=== PATIENT | male | born 1995 | race Hispanic/Latino ===

== ENCOUNTER 2016-12-25 16:13 | Emergency (ER) | payer OTHER ==
[~2016-12-25] VITALS: Ht 182.9 cm; Wt 70.3 kg
[~2016-12-25 16:13] MED LIST: DOXYCYCLINE100 MG PO; MOTRIN800 MG PO; VYVANSE70 MG PO
--- NOTE | 2016-12-25 16:54 | ED PSYCHIATRIC COMPLAINT ---
See Addendum History of Present Illness General Chief Complaint: ETOH/Drug Related Complaint Stated Complaint: DETOX Source: patient, family Exam Limitations: clinical condition Vital Signs & Intake/Output Vital Signs & Intake/Output Vital Signs Date Time Temp Pulse Resp B/P B/P Pulse O2 O2 Flow FiO2 Mean Ox Delivery Rate 12/25 2021 96.9 60 16 109/59 100 Room Air 12/25 1627 98.1 59 16 111/65 97 Room Air ED Intake and Output 12/26 0000 12/25 1200 Intake Total Output Total Balance Patient 155 lb Weight Weight Reported by Patient Measurement Method Allergies Coded Allergies: MDX - Amoxicillin (AMOXICILLIN) (UNKNOWN 12/29/14) Reconcile Medications Lisdexamfetamine Dimesylate (Vyvanse) 70 MG CAP 1 CAP PO QAM ADHD (Reported) Lisdexamfetamine Dimesylate (Vyvanse) 70 MG CAP 1 CAP PO DAILY ADHD (Reported ) Triage Note: PT STATES HE IS FEELING SUICIDAL STATES HE HAS ALWAYS FELT LIKE THIS BUT IT HAS BEEN BAD THE LAST TWO WEEKS. PT STATES HE SMOKES WEED AND THAT IS IT. PT REPORTS TRYING TO GET INTO A PROGRAM THAT WILL HELP HIM WITH COPING SKILLS. PT REPORTS THAT HE IS HOMELESS AND DEPRESSED. PT DENIES OTHER DRUG USE AND ADMITS TO ETOH BUT STATES THIS IS NOT A PROBLEM FOR HIM Triage Nurses Notes Reviewed? yes Onset: Abrupt Duration: unknown duration Timing: unknown HPI: 12/25/16 5 PM 21-year-old male brought into the hospital by ambulance for suicidal ideation. According to the patient's grandmother he expressed that he was going to kill himself. The patient currently denies depression or suicidal ideation at this time. He does say that he was recently kicked out of his father's house and is homeless. He denies prior psychiatric care. The onset of the symptoms were abrupt, the duration and the symptoms are unknown, the severity is significant as his symptoms required him to come to the emergency department for care. (NOLBERTO BOB DO) Past History Travel History Traveled to [place] past 21 day No Medical History Any Pertinent Medical History? see below for history Neurological: NONE EENT: NONE Cardiovascular: NONE Respiratory: NONE Gastrointestinal: NONE Hepatic: NONE Renal: NONE Musculoskeletal: NONE Psychiatric: ADHD Endocrine: NONE Blood Disorders: NONE Cancer(s): NONE Surgical History Surgical History: non-contributory Psychosocial History What is your primary language Portuguese Tobacco Use: Current Daily Use Daily Tobacco Use Amount/Type: => 5 Cigarettes daily ETOH Use: occasional use Illicit Drug Use: marijuana Family History Hx Contributory? No (NOLBERTO BOB DO) Review of Systems Review of Systems Constitutional: Reports: no symptoms. EENTM: Reports: no symptoms. Respiratory: Reports: no symptoms. Cardiovascular: Reports: no symptoms. GI: Reports: no symptoms. Genitourinary: Reports: no symptoms. Musculoskeletal: Reports: no symptoms. Skin: Reports: no symptoms. Neurological/Psychological: Reports: depressed. Hematologic/Endocrine: Reports: no symptoms. Immunologic/Allergic: Reports: no symptoms. (NOLBERTO BOB DO) Physical Exam Physical Exam General Appearance: well developed/nourished, alert, awake, anxious, mild distress Head: atraumatic, normal appearance Eyes: Bilateral: normal appearance, PERRL, EOMI. Ears, Nose, Throat: normal pharynx, normal ENT inspection Neck: normal inspection, supple Respiratory: normal breath sounds, chest non-tender, no respiratory distress Cardiovascular: regular rate/rhythm Gastrointestinal: soft, non-tender Extremities: normal range of motion Neurological/Psychiatric: no motor/sensory deficits, awake, agitated Appearance/Memory/Insight: appropriate appearance Behavoir/Eye Contact/Speech: uncooperative Thoughts/Hallucinations: no apparent hallucination Skin: intact, normal color, warm/dry SAD PERSONS SAD PERSONS Response Value Male Sex? yes 1 Depression/Hopelessness? yes 2 Single//? yes 1 Social Support? has support 0 Total 4 SAD PERSONS Done? yes (NOLBERTO BOB DO) Progress Differential Diagnosis: DEPRESSION, SI Plan of Care: Orders Procedure Date/time Status Regular Diet 12/26 B Active Continuous Observation Monitor 12/25 1710 Active URINE DRUG SCREEN FOR ER ONLY 12/25 1710 Complete ED CRISIS PSYCH CONSULT 12/25 1710 Active Laboratory Tests 12/25/16 1745: Urine Opiates Screen 268.00, Methadone Screen < 40, Barbiturate Screen < 60, Ur Phencyclidine Scrn < 6.00, Amphetamines Screen < 100, U Benzodiazepines Scrn < 85, Urine Cocaine Screen < 50, Urine Cannabis Screen > 80.00 H The patient was placed in a quiet room. Close observation monitor was ordered. Crisis consultation was requested. (NOLBERTO BOB DO) Initial ED EKG: none (NOLBERTO BOB DO) Departure Departure Disposition: STILL A PATIENT Condition: Stable Clinical Impression Primary Impression: Depression Referrals: DALI BAUTISTA,DELILAH Smiley (PCP/Family) Departure Forms: Customer Survey General Discharge Information Comments 12/26/16 12:25 am The patient is awaiting crisis reevaluation. He was signed out to Dr. Frank at 1 AM (NOLBERTO BOB DO) PA/NETWORK LIAISON Co-Sign Statement Statement: ED Attending supervision documentation- [] I saw and evaluated the patient. I have also reviewed all the pertinent lab results and diagnostic results. I agree with the findings and the plan of care as documented in the PA's/NETWORK LIAISON's documentation. [x]x I have reviewed the ED Record and agree with the PA's/NETWORK LIAISON's documentation. [] Additions or exceptions (if any) to the PAs/NETWORK LIAISON's note and plan are summarized below: [] (INDIGO BAUTISTA,BARRY Cobb)
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
[2016-12-26 06:13] VITALS: BP 118/75
--- NOTE | 2016-12-26 09:00 | ED PSYCH CRISIS CONSULTATION ---
Crisis Consult Basic Assessment Date of Consult: 12/26/16 Responsible Person/Accompanied By: self Insurance Authorization: Insurance #1: Insurance name: SOTERO KIDD Phone number: Policy number: [id number] Group number: [id number] Authorization number: ED Provider: Patient's ED Provider: NOLBERTO BOB DO Primary Care Physician: Patient's PCP: DELILAH MCNALLY MD PCP's Current Psychiatrist: None Chief Complaint: Psychiatric Related Complaint Patient's Quote: "I just said I was suicidal so that I would have a place to sleep." Present Illness: Pt is a 21 yo male who was brought to the ED due to family concerns that pt was suicidal. Acute Coordinator SUHAS Mccrary met with grandparents and Mother last night. Please see collateral note. Upon crisis eval this morning, pt denies any active SI. "This was my Grandma's idea. She coached me on what to says so that I would have a place to sleep." Pt has been having ongoing conflict with family and is not allowed to stay with them. "I was staying on the couch of my Mom's friend, but my Mom did not want me to be a burden on her." Pt is adamant that he is not suicidal and denies ever making any suicide attempts. "I'm not suicidal. I want to get my life together. I have a job fair I'm supposed to go to today." Pt denies any current sx of depression. He admits he smokes marijuana daily since he was 13 and drinks alcohol "once in awhile." Pt denies any hx of any inpt psych tx. Pt was in out pt tx at [facility], but stopped going when he started a new job, but lost the job. Pt expressed his motivation to stop smoking marijuana and attend [facility]. Pt was provided with an intake appointment with [facility] for Wednesday12/28/16 at 9:30am. Pt was also provided with information about [facility] to assist with residential and employment assistance. Case reviewed with Dr. Del Cid of Psychiatry and he approved dispo plan. Upon discharge, pt called his Mother and Grandmother to ask to be picked up. Mom was refusing to pick pt up. Mom and Grandma expressed their concern to this clinician that pt has been making suicidal statements all week such as threatening to take pills and threatening to walk into traffic and sent his Mom a text yesterday that eh wants to . It appears that the statements are made in the context of pt trying to get his family to let him stay with them. Pt continues to deny that he is suicidal and declined any inpt tx. Pt would like to be discharged. This clinician reviewed the case again with Dr. Del Cid, because of Mom and Grandma's expressed concerns. Dr. Del Cid is still in agreement for pt to be discharged as planned and to follow-up in [facility]. This clinician informed Mom that pt is being discharged. Explained to her if that pt may return to the ED if there are safety concerns. At Mom's request Pt was provided with a list of inpt substance abuse tx facilities. Pt informed that his father is able to pick him up. Patient's Address: [address] [place] [address] Other Phone Number: Who Do You Live With? Other (see notes) (homeless) Family/Informants Interviewed: momm and grandparents Allergies - Coded Allergies: MDX - Amoxicillin (AMOXICILLIN) (UNKNOWN 12/29/14) Current Medications - Scheduled Medications Lisdexamfetamine Dimesylate (Vyvanse) 70 MG CAP 1 CAP PO QAM ADHD #30 ( Reported) Entered as Reported by NILAM FLETCHER on 05/16/15 1447 Lisdexamfetamine Dimesylate (Vyvanse) 70 MG CAP 1 CAP PO DAILY ADHD (Reported ) Entered as Reported by EMILY ROMERO on 05/16/15 1620 Laboratory Results: Laboratory Tests 12/25/16 1745: Urine Opiates Screen 268.00, Methadone Screen < 40, Barbiturate Screen < 60, Ur Phencyclidine Scrn < 6.00, Amphetamines Screen < 100, U Benzodiazepines Scrn < 85, Urine Cocaine Screen < 50, Urine Cannabis Screen > 80.00 H Past History Past Medical History Neurological: NONE EENT: NONE Cardiovascular: NONE Respiratory: NONE Gastrointestinal: NONE Hepatic: NONE Renal: NONE Musculoskeletal: NONE Psychiatric: ADHD Endocrine: NONE Blood Disorders: NONE Cancer(s): NONE Past Surgical History Surgical History: non-contributory Psychosocial History Strengths/Capabilities: motivated for treatment and seeking empolyment, future oriented Physical Limitations (Interventions): none reported Psychiatric Treatment History Psych Treatment Psychiatric Treatment Yes Inpatient Treatment No Outpatient Treatment Yes Location of Treatment [facility] Reason for Treatment depression Dates of Treatment 2017 Response to Treatment variable Diagnosis by History: Bipolar, ADHD Substance Use/Abuse History Drug Use/Abuse Substances Used/Abused Yes Substance Used/Abused Other (list in comments) (see present illness) Substance Abuse Treatment Substance Abuse Treatment Past Substance Abuse [place] No Inpatient Treatment No Outpatient Treatment No Current Mental Status Mental Status Orientation: Person, Place, Situation Affect: WNL Speech: WNL Neuro-vegetative: WNL Appearance Appearance- Dress/Hygiene: well groomed, good eye contact Behaviors Thought Process: WNL Thought Content: WNL Memory: WNL Insight: WNL SI/HI Risk Assessment Past Suicidal Ideation/Attempts No Current Suicidal Ideation/Att No Past Homicidal Ideation/Att: No Current Homicidal Ideation/Attempts No Degree of Intent: None Risk Factors: age (under 24/over 65), substance abuse, male, limited support Lethality Ratin (mild) PTSD Checklist PTSD Done? patient declined ED Management Sitter: Yes Restraints: No DSM5/PS Stressors/Medical Prob Diagnosis' (DSM 5, Stressors, Medical): Unspecified Depression F32.9, Cannabis use, f12.20, alcohol use f10.20 Current GAF: 40 Departure Disposition Psych Medical Clearance Date: 12/26/16 Medically Cleared at: 0845 Time Started: 844 Time Ended: 944 Psychiatrist Consulted: Dr. Del Cid Date Disposition Established: 12/26/16 Time Disposition Established: 944 Plan for Disposition - Modality: IOP Facility: [facility] Follow-up Appt Date: 12/28/16 Follow-Up Appt Time: 929 Rationale for Disposition: Pt denies any SI and is motivated to attend IOP Referrals DALI BAUTISTA,DELILAH Smiley (PCP/Family)
--- NOTE | 2016-12-28 10:34 | IOP INCIDENTAL NOTE ---
IOP Incidental Note Details: Patient no call/no show for IOP intake appointment. His phone number of record is out of service.
== END 2016-12-26 10:04 ==
LOC: ERH 16:13
DX: F32.9 Major depressive disorder, single episode, unspecified (principal); F12.10 Cannabis abuse, uncomplicated
CPT/HCPCS: 80307; G0463